=== PATIENT | female | born 1980 | race Asian ===

== ENCOUNTER 2020-07-06 09:56 | Emergency (ER) | payer OTHER ==
--- NOTE | 2020-07-06 10:05 | ED Physician Documentation ---
PD HPI HEENT - Stated complaint Stated Complaint: MOUTH SORE - Chief complaint Chief Complaint: Heent - History obtained from History obtained from: Patient - History of Present Illness Timing - onset: How many weeks ago (1) Timing - duration: Weeks (1) Timing - details: Gradual onset, Still present Location: Mouth (Noted some soreness of her inside lip and gums initially about a week ago and has progressed to be the inside of her lip and side of the tongue and under the tongue and some now to the back of her throat.) Worsens: Swalllowing Associated symptoms: No: Fever, Congestion, Swollen nodes, Facial swelling Similar symptoms before: Has not had sx before Recently seen: Clinic (She had not been on any recent oral medications or antibiotics. No recent change in baseline medications. Seen at clinic yesterday and prescribed oral nystatin.) Review of Systems Constitutional: denies: Fever Nose: denies: Rhinorrhea / runny nose, Congestion, Sinus pressure / pain Throat: reports: Oral lesions / sores, Sore throat (only mild in back of throat, mostly around tongue, inner lips and some of gums.). denies: Dental pain / toothache Cardiac: denies: Chest pain / pressure Respiratory: denies: Cough Skin: denies: Rash, Lesions PD PAST MEDICAL HISTORY - Past Medical History Past Medical History: No Endocrine/Autoimmune: None - Present Medications Home Medications: Ambulatory Orders Medication Instructions Recorded Confirmed Fluconazole [Diflucan] 150 mg PO Q2D #2 tablet 07/06/20 HYDROcod/ACETAM 5/325 [Matthews 5/325] 1 ea PO Q6H PRN #12 tablet 07/06/20 Lidocaine Viscous 2% [Xylocaine 5 ml PO Q4H PRN #100 ml 07/06/20 Viscous 2%] Nystatin [Nystop] 5 ml ORAL QID 07/06/20 07/06/20 diphenhydrAMINE ELIXIR [Benadryl 12.5 mg PO Q6H PRN #120 ml 07/06/20 Elixir] - Allergies Allergies/Adverse Reactions: Allergies Allergy/AdvReac Type Severity Reaction Status Date / Time No Known Drug Allergies Allergy Verified 07/06/20 10:03 PD ED PE NORMAL - Vitals Vital signs reviewed: Yes - General General: Alert and oriented X 3, Well developed/nourished - HEENT HEENT: Ears normal, Moist mucous membranes, Dentition benign, Other (There is some mild redness without exudate on the posterior soft palate. The posterior pharynx appears okay. The inner part of the cheeks and inner part of the lips and lower gingiva and tongue all have white patchy exudate with superficial redness. No ulcerations per se.) - Neck Neck: Supple, no meningeal sign, No adenopathy - Cardiac Cardiac: RRR, No murmur - Respiratory Respiratory: Clear bilaterally - Derm Derm: Normal color, Warm and dry, No rash Results - Vitals Vitals: Vital Signs - 24 hr 07/06/20 07/06/20 10:00 10:37 Temperature 37.2 C 36.9 C Heart Rate 68 67 Respiratory 18 16 Rate Blood Pressure 153/99 H 152/101 H O2 Saturation 98 99 Oxygen O2 Source Room air PD MEDICAL DECISION MAKING - ED course Complexity details: considered differential (It does look candidal. Only started Nystatin yesterday. Can add oral antifungal as well as topical meds for pain. ), d/w patient Departure - Departure Disposition: 01 Home, Self Care Clinical Impression: Candidal stomatitis Condition: Stable Record reviewed to determine appropriate education?: Yes Instructions: Nani Infec Thrush Follow-Up: [facility] [Provider Group] Prescriptions: diphenhydrAMINE ELIXIR [Benadryl Elixir] 12.5 mg PO Q6H PRN #120 ml PRN Reason: Pain Fluconazole [Diflucan] 150 mg PO Q2D #2 tablet HYDROcod/ACETAM 5/325 [Matthews 5/325] 1 ea PO Q6H PRN #12 tablet PRN Reason: Pain Lidocaine Viscous 2% [Xylocaine Viscous 2%] 5 ml PO Q4H PRN #100 ml PRN Reason: Pain Comments: It does look like a fungal infection so the nystatin orally as prescribed yesterday makes sense. We can add an tablet antifungal every 2 days for 3 doses as well. For the pain of it, you can use some lidocaine and diphenhydramine liquid 3 to 5 mL of each combined and just swish around on the sore areas and can swallow it. Add Tylenol or ibuprofen for pains. To that add hydrocodone if needed for worse pain. Recheck if not improved well over the next 2 to 3 days and resolved within 3 to 5 days. Forms: Activity restrictions Discharge Date/Time: 07/06/20 10:43
[2020-07-06] MEDS ORDERED: FLUCONAZOLE 100 MG TABLET PO STA (10:23)
[2020-07-06] MEDS ORDERED: diphenhydrAMINE ELIXIR 25 MG/10 ML UDC PO STA (10:23)
[2020-07-06] MEDS ORDERED: LIDOCAINE VISCOUS 2% 15 ML UDC MM STA (10:23)
[2020-07-06 10:42] VITALS: BP 152/101
== END 2020-07-06 10:43 | disposition home or self-care (01) ==
LOC: ED 09:56
DX: B37.0 Candidal stomatitis (principal)
CPT/HCPCS: 99284; A9270